=== PATIENT | female | born 1970 | race Caucasian/White ===

== ENCOUNTER 2021-04-12 12:57 | Emergency (ER) | payer OTHER ==
[~2021-04-12 12:57] MED LIST: MULT-1085 PO; PAX20T CORPAK
== END 2021-04-12 14:55 | disposition left against medical advice (07) ==
LOC: ER 12:58
DX: Z53.21 Procedure and treatment not carried out due to patient leaving prior to being seen by health care provider (principal)

== ENCOUNTER 2023-10-12 14:35 | Outpatient (CLI) | payer BC | END 2023-10-12 23:59 | disposition home or self-care (01) | LOC: RAD 14:35 | PROVIDERS: ATTEND General Practice | DX: M25.562 Pain in left knee (principal) | CPT/HCPCS: 73564 ==

== ENCOUNTER 2023-10-25 13:51 | Emergency (ER) | payer BC ==
[~2023-10-25] VITALS: Ht 167.6 cm; Wt 79.5 kg
[2023-10-25 14:14] VITALS: BP 141/76; PULSE 91; RESP 18; TEMP 97.2; O2SAT 98
== END 2023-10-25 17:52 | disposition left against medical advice (07) ==
LOC: ER 13:52
DX: M25.569 Pain in unspecified knee (principal); Z53.21 Procedure and treatment not carried out due to patient leaving prior to being seen by health care provider